=== PATIENT | female | born 1980 | race Caucasian/White ===

== ENCOUNTER 2017-03-19 21:24 | Emergency (ER) | payer MEDICAID ==
[~2017-03-19] VITALS: Ht 157.5 cm; Wt 56.7 kg
--- NOTE | 2017-03-19 21:53 | NUR ---
Pt to room. Pt c/o rash to left buttock that spread to the right upper back thigh. Pt also c/o generalized weakness. Pt resting in position of comfort for self. Awaiting further eval.
[2017-03-19] MEDS ORDERED: DEXAMETHASONE SOD PHOSPHATE 4 MG INJ IM ONE (22:15)
[2017-03-19] MEDS ORDERED: diphenhydrAMINE 50 MG/1 ML VIAL IM ONE (22:15)
[2017-03-19] MEDS ORDERED: EPINEPHRINE 1 MG/1 ML AMP SQ ONE (22:15)
[2017-03-19 22:27] LABS: BASOPHILS % (AUTO) 0.5 % (0.0-2.0); EOSINOPHILS # (AUTO) 0.2 K/uL (0.0-0.7); EOSINOPHILS % (AUTO) 5.5 % (0.0-7.0); HEMATOCRIT 39.1 % (37-47); HEMOGLOBIN 13.7 G/DL (12.0-16.0); LYMPHOCYTES # (AUTO) 1.4 K/UL (0.8-4.8); LYMPHOCYTES % (AUTO) 30.5 % (20.5-51.5); MEAN CORPUSCULAR HEMOGLOBIN 32.3 UUG (27.0-31.0); MEAN CORPUSCULAR HGB CONC 35 g/dL (32.0-37.0); MEAN CORPUSCULAR VOLUME 92.3 FL (81.0-99.0); MONOCYTES # (AUTO) 0.3 K/UL (0.1-1.30); MONOCYTES % (AUTO) 6.7 % (0.0-11.0); NEUTROPHILS # (AUTO) 2.6 K/UL (1.8-8.9); NEUTROPHILS % (AUTO) 56.8 % (38.5-71.5); PLATELET COUNT (AUTO) 188 K/UL (150-450); RED BLOOD CELL COUNT(AUTO) 4.24 MIL/UL (4.2-5.4); WHITE BLOOD COUNT (AUTO) 4.5 K/UL (4.0-11.2)
[2017-03-19 22:34] LABS: CREATININE 0.9 mg/dL (0.6-1.3); POTASSIUM 3.9 mmol/L (3.5-5.1)
[2017-03-19] MEDS ORDERED: diphenhydrAMINE 50 MG/1 ML VIAL ONE (22:37)
[2017-03-19] MEDS ORDERED: DEXAMETHASONE SOD PHOSPHATE 4 MG INJ ONE (22:37)
[2017-03-19] MEDS ORDERED: EPINEPHRINE 1 MG/1 ML AMP ONE (22:38)
[2017-03-19] MEDS ORDERED: DEXAMETHASONE SOD PHOSPHATE 10 MG INJ ONE (22:38)
[2017-03-19 22:39] LABS: BILIRUBIN,TOTAL 0.4 mg/dL (0.2-1.0); TOTAL PROTEIN, SERUM 7.3 g/dL (6.4-8.2)
[2017-03-19 23:00] LABS: THYROID STIMULATING HORMONE 2.74 mIU/mL (0.358-3.740)
--- NOTE | 2017-03-19 23:50 | NUR ---
Rash improved with medications. Pt stable for discharge per MD. Pt given ACI. Pt verbalized understanding of dc instructions. 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
[2017-03-20 00:46] VITALS: BP 115/45
== END 2017-03-19 23:50 | disposition home or self-care (01) ==
LOC: ER 21:44
DX: L50.9 Urticaria, unspecified (principal); R21 Rash and other nonspecific skin eruption
CPT/HCPCS: 36415; 84443; 85025; 85651; 86140; A4663; J0171; J1100; J1200